=== PATIENT | female | born 1985 | race Two or more races ===

== ENCOUNTER 2024-05-28 23:40 | Emergency (ER) | payer MEDICAID, OTHER ==
[~2024-05-28] VITALS: Ht 162.6 cm; Wt 78.8 kg
--- NOTE | 2024-05-29 01:38 | DVH ---
CLINICAL HISTORY: RIGTH FACIAL DROOP TECHNIQUE: Helical imaging carried out from skull base to vertex without intravenous contrast. This e xam was performed according to our departmental dose optimization program. Up-to-date CT equipment an d radiation dose reduction techniques are utilized as appropriate. CTDIVol: 51.84 mGy DLP: 831.17 mGy-cm WID: COMPARISON: None FINDINGS: The ventricles and subarachnoid spaces are normal in size and configuration. There is no midline jeanette ft or mass effect. The morgan white matter interfaces are maintained. The basal cisterns are patent. Th ere is no evidence of acute intracranial hemorrhage or extra-axial fluid collection. The mastoid air cells and visualized paranasal sinuses are well-aerated. IMPRESSION: No acute intracranial abnormality.
--- NOTE | 2024-05-29 02:22 | ED.PDOC ---
History of Present Illness HPI Comments 38 y/o F presents wit c/o right-facial droop, today. Patient is a [place] speaker and reports on ongoing symptom, with no prior history of before, following unprovoked onset, last night. She denies any weakness, numbness, tingling, vision or speech changes, or other associated symptoms at this time. Chief Complaint: Right Sided Weakness Time Seen by MD: 23:40 Reviewed Notes: Nurses Notes, Medications, Allergies Allergies: Coded Allergies: NO KNOWN ALLERGIES (Unverified , 05/29/24) Information Source: Patient Mode of Arrival: Ambulatory Past Medical History PAST MEDICAL HISTORY: Denies Surgical History: Denies all surgeries UPKEEP MECHANIC History: No Pertinent UPKEEP MECHANIC History Family History Family History: Unknown Social History Smoker: Non-Smoker Alcohol: Denies ETOH Use Drugs: Denies Drug Use Lives In: Home All Other Systems: Reviewed and Negative (Comprehensive systems review obtained and negative except for what is stated in the HPI.) Physical Exam General Appearance: No Apparent Distress, Other (overweight ) HEENT: Normal ENT Inspection, Pharynx Normal, TMs Normal, Other (right-facial droop) Neck: Full Range of Motion, Non-Tender, Normal, Normal Inspection Respiratory: Chest Non-Tender, Lungs Clear, No Accessory Muscle Use, No Respira tory Distress, Normal Breath Sounds Cardiovascular: No Edema, No JVD, No Murmur, No Gallop, Normal Peripheral Pulses, Regular Rate/Rhythm Breast Exam: Deferred Gastrointestinal: No Organomegaly, Non Tender, No Pulsatile Mass, Normal Bowel Sounds, Soft Genitalia: Deferred Pelvic: Deferred Rectal: Deferred Extremities: No calf tenderness, Normal capillary refill, Normal inspection, Normal range of motion, Non-tender, No pedal edema Musculoskeletal : Apperance: Normal Neurologic: Alert, plan manager II-XII nml as Tested, Facial Droop (right-side ), No Motor Deficits, Normal Affect, Normal Mood, No Sensory Deficits Cerebellar Function: Normal Reflexes: Normal Skin: Dry, Normal Color, Warm Lymphatic: No Adenopathy Was a procedure done? Was a procedure done?: No Differential Dx Considerations may include: Stanton's Palsy, CVA, TIA, intracranial mass X-Ray, Labs, Meds, VS Vital Signs Date Time Temp Pulse Resp B/P (MAP) Pulse Ox O2 Delivery O2 Flow Rate FiO2 05/28/24 23:50 98.3 88 18 155/81 (105) 97 98.3 Lab Test 05/28/24 23:57 Range/Units Beta HCG, Quantitative 0.7 L 1.5-4.2 mIU/mL [address] [address] Ph: [phone] DIAGNOSTIC IMAGING Diagnostic Imaging Report : [id number] Signed PATIENT: TRUMAN NANCE ACCT: [id number] UNIT: [id number] : 1985 LOC: ER ROOM / BED: / AGE / SEX: 38 / F ADM STATUS: REG ER SERVICE [id number] ORDERING PHYSICIAN: GAUTAM ESPARZA MD PROCEDURE(s): HWOCT - HEAD WITHOUT CONTRAST REASON: RIGTH FACIAL DROOP ORDER NUMBER(s): [id number], ACCESSION NUMBER(s): [id number] CLINICAL HISTORY: RIGTH FACIAL DROOP TECHNIQUE: Helical imaging carried out from skull base to vertex without intravenous contrast. This exam was performed according to our departmental dose optimization program. Up-to-date CT equipment and radiation dose reduction t echniques are utilized as appropriate. CTDIVol: 51.84 mGy DLP: 831.17 mGy-cm WID: COMPARISON: None FINDINGS: The ventricles and subarachnoid spaces are normal in size and configuration. There is no midline shift or mass effect. The morgan white matter interfaces are maintained. The basal cisterns are patent. There is no evidence of acute intracranial hemorrhage or extra-axial fluid collection. The mastoid air cells and visualized paranasal sinuses are well-aerated. IMPRESSION: No acute intracranial abnormality. ATED BY: EDDIE LOOMIS MD DICTATED DATE/TIME: 05/29/24135 SIGNED BY: EDDIE LOOMIS MD SIGNED DATE/TIME: 05/29/24135 CC: Time of 1ST Reevaluation: 00:10 Reevaluation 1ST: Unchanged Patient Education/Counseling: Diagnosis, Treatment Family Education/Counseling: No Family Present Additional Information Previous visit documents reviewed: n/a The following tests were ordered, and results were reviewed by me: Head CT w/o contrast, Beta HCG Quant Additional Information was gathered from interviewing the following independent historians: n/a I reviewed and agreed with the following test results read by other providers: Head CT w/o contrast I discussed treatment and results with medical personnel and: Patient Departure 1 Departure Time of Disposition: 02:32 Impression: Primary Impression: Stanton's palsy Disposition: HOME / SELF CARE / HOMELESS Condition: Good e-Prescriptions Prednisone (Prednisone) 20 Mg Tab 20 MG PO DAILY for 5 Days, #5 MG Prov: GAUTAM ESPARZA MD 05/29/24 Artificial Tear Solution (ARTIFICIAL TEARS) Tears Sia 1 DROP EACHEYE QID, #15 ML 5 Refills Prov: GAUTAM ESPARZA MD 05/29/24 Acyclovir (Acyclovir) 800 Mg Tab 800 MG PO 5XD for 7 Days, #35 TAB Prov: GAUTAM ESPARZA MD 05/29/24 Discharged With: Self Critical Care Note Critical Care Time?: No Stability Stability form required: No Heart Score Heart Score: Heart Score Response (Comments) Value History N/A 0 EKG N/A 0 Age N/A 0 Risk Factors N/A 0 Troponin N/A 0 Total 0 I personally scribed for GAUTAM ESPARZA MD ([email or web address]) on 05/29/24 at 02:22. Electronically submitted by Manan Syed ([email or web address]). GAUTAM ESPARZA MD May 29, 2024 02:22
[2024-05-29] MEDS ORDERED: ACYC1TAB3 PO (02:35)
[2024-05-29] MEDS ORDERED: ARTISOL13 EACHEYE (02:35)
[2024-05-29] MEDS ORDERED: PRED20TA2 PO (02:35)
[2024-05-29 03:20] VITALS: BP 124/81; PULSE 70; RESP 18; TEMP 98.2; O2SAT 97
== END 2024-05-29 03:20 | disposition home or self-care (01) ==
LOC: ER 23:40
DX: G51.0 Bell's palsy (principal); R10.2 Pelvic and perineal pain
CPT/HCPCS: 36415; 70450; 84702